=== PATIENT | female | born 1960 | race Caucasian/White ===

== ENCOUNTER → 2019-10-27 | Outpatient (CLI) | payer OTHER ==
--- NOTE | 2019-10-27 12:01 | Diagnostic Imaging Report ---
EXAM: BONE MINERAL DENSITY HISTORY: Screening for musculoskeletal disorder COMPARISON: None DISCUSSION: Evaluation of the left hip and lumbar spine was performed utilizing DEXA Hologic bone densitometer. The study is technically adequate. The patient's fracture risk is compared to an age-matched control. The patient denies prior surgery/fracture of the spine, hips or forearm. Left hip femoral neck bone mineral density: 1.029 g/cm2, T-score is 1.6, Z-score is 2.9. Left hip total bone mineral density: 1.042 g/cm2, T-score is 0.8, Z-score is 1.7. Lumbar spine total bone mineral density: 1 gm/cm2, T-score is -0.4, Z-score is 0.9. Impression: Bone mineralization by WHO Classification is normal, the fracture risk is not increased. Signed by: Caden Stringer MD on 10/27/2019 11:58 AM
== END ==
LOC: DX 10:36
PROVIDERS: ATTEND Family Medicine
DX: Z13.820 Encounter for screening for osteoporosis (principal)
CPT/HCPCS: 77080

== ENCOUNTER 2019-12-15 13:00 | Outpatient (RCR) | payer OTHER | END 2020-01-06 | LOC: PT 13:00 | PROVIDERS: ATTEND Family Medicine | DX: M47.892 Other spondylosis, cervical region (principal); M47.894 Other spondylosis, thoracic region; M47.896 Other spondylosis, lumbar region; M54.12 Radiculopathy, cervical region; M54.14 Radiculopathy, thoracic region; M54.16 Radiculopathy, lumbar region; R26.2 Difficulty in walking, not elsewhere classified ==

== ENCOUNTER → 2020-05-24 | Outpatient (CLI) | payer OTHER | LOC: CARD 08:36 | PROVIDERS: ATTEND Family Medicine | DX: R07.9 Chest pain, unspecified (principal); I10 Essential (primary) hypertension; E78.5 Hyperlipidemia, unspecified; R60.9 Edema, unspecified | CPT/HCPCS: 93306; 93880; 93970 ==

== ENCOUNTER 2021-05-27 14:58 | Emergency (ER) | payer OTHER ==
[~2021-05-27] VITALS: Ht 160 cm; Wt 108.9 kg
[2021-05-27 18:22] LABS: BASOPHILS % 0.4 % (0.0-1.0); EOSINOPHILS # (AUTO) 0.1 (0.0-0.4); EOSINOPHILS % 0.6 % (0.0-6.0); HEMATOCRIT 44.9 % (34.2-44.1); HEMOGLOBIN 14.9 g/dL (12.0-16.0); LYMPHOCYTES # (AUTO) 1.9 (1.0-3.2); LYMPHOCYTES % 18.8 % (18.0-39.1); MEAN CORPUSCULAR HEMOGLOBIN 30.5 pg (28-32); MEAN CORPUSCULAR HGB CONC 33.2 g/dL (31-35); MONOCYTES # (AUTO) 0.6 (0.2-0.8); MONOCYTES % 6.5 % (4.4-11.3); NEUTROPHILS # (AUTO) 7.3 (2.1-6.9); NEUTROPHILS % 73.5 % (38.7-80.0); PLATELET COUNT 268 x10e3/uL (140-360); RED BLOOD COUNT 4.88 x10e6/uL (3.6-5.1); RED CELL DISTRIBUTION WIDTH 14.4 % (11.7-14.4)
[2021-05-27 18:33] LABS: INR 0.92; PARTIAL THROMBOPLASTIN TIME 28.9 seconds (23.8-35.5); PROTHROMBIN TIME 13.2 seconds (11.9-14.5)
[2021-05-27 18:43] LABS: ALBUMIN 4.1 g/dL (3.5-5.0); ALBUMIN/GLOBULIN RATIO 1.1 (0.8-2.0); ANION GAP 15.1 mmol/L (8-16); CALCIUM 10.3 mg/dL (8.4-10.2); CREATININE, SERUM 1.01 mg/dL (0.57-1.11); POTASSIUM 4.1 mmol/L (3.5-5.1)
[2021-05-27 18:49] LABS: CREATINE KINASE MB 1.4 ng/mL (0-5.0)
[2021-05-27] MEDS ORDERED: LABETALOL HCL 5 MG/ML 20ML VIAL IV STA (19:50)
[2021-05-27] MEDS ORDERED: CLONIDINE HCL 0.1 MG TAB PO STA (19:52)
[2021-05-27] MEDS ORDERED: CLONIDINE HCL 0.1 MG TAB ONE (20:09)
== END 2021-05-27 21:23 | disposition home or self-care (01) ==
LOC: ER 16:46
DX: R00.2 Palpitations (principal); R03.0 Elevated blood-pressure reading, without diagnosis of hypertension
CPT/HCPCS: 36415; 71045; 80053; 82550; 82553; 84443; 84484; 85025; 85379; 85610; 85730; 93005; 99283